=== PATIENT | male | born 1990 | race Caucasian/White ===

== ENCOUNTER 2017-07-15 16:17 | Emergency (ER) | payer OTHER ==
[~2017-07-15] VITALS: Ht 172.7 cm; Wt 74.8 kg
[2017-07-15 17:05] VITALS: Ht 172.7 cm; Wt 74.8 kg
[2017-07-15 18:17] LABS: AMPHETAMINE QUAL UR NONE DETECTED (NEG <=1000)
[2017-07-15 21:17] VITALS: BP 146/76
== END 2017-07-15 21:17 | disposition short-term general hospital (02) ==
LOC: ED 16:17
PROVIDERS: Emergency Medicine
DX: S02.119A Unspecified fracture of occiput, initial encounter for closed fracture (principal); Y04.8XXA Assault by other bodily force, initial encounter; Y93.89 Activity, other specified; Y99.8 Other external cause status; Y92.89 Other specified places as the place of occurrence of the external cause
CPT/HCPCS: J2405; J8597

== ENCOUNTER 2018-12-21 19:41 | Emergency (ER) | payer OTHER | END 2018-12-21 19:46 | disposition left against medical advice (07) | LOC: ED 19:41 | DX: Z53.21 Procedure and treatment not carried out due to patient leaving prior to being seen by health care provider (principal) ==